=== PATIENT | female | born 1930 | race Caucasian/White ===

== ENCOUNTER 2017-12-28 13:46 | Inpatient (IN) | payer MEDICARE, BC, OTHER ==
[2017-12-28] VITALS (14 sets, daily range): BP systolic 166–205; BP diastolic 57–79; PULSE 58–73; RESP 16–38; TEMP 98.2–98.9; O2SAT 94–99
[~2017-12-28] VITALS: Ht 149.9 cm; Wt 50.3 kg
[~2017-12-28 13:46] MED LIST: AMLO2.5T PO; B-1210005 PO; CALC200S; CALC500T21 OR; CHEL50TA PO; CLOP75 PO; COQ1200C3 PO; CRANCAP PO; ESTR42.5V PV; EVIS60TA PO; FLUTPOW4; GING550C PO; GLUCCAP13 PO; ISOS10TA35 PO; LOSA25TA31 PO; LYRI150C PO; MAGN250T13 PO; METO25CR PO; MONT10 PO; NITR.4 SL; PRAV40TA2 PO; SALM1000 PO; SUPETAB30 PO; TEMA15CA PO; TRAM50TA PO; TYLE500T PO; WARF2.5T40 PO; WARF5TAB PO; [UNRECOGNIZED DRUG - CODE] TOP
--- NOTE | 2017-12-28 14:11 | PD ---
HPI Chief Complaint: Respiratory Symptoms Time Seen by Provider: 14:11 Travel History International Travel<30 days: No Contact w/Intl Traveler<30days: No Traveled to known affect area: No History of Present Illness HPI 87-year-old female came to the emergency room with history of running high blood pressure. Patient seems to be confused here which might be her baseline. Her son is giving the history and his main concern is that her blood pressure has been running between 180s to 200 systolic. He is concerned that she may have a stroke and hence he brought her to the emergency room. Patient has history of lung cancer and is on immunotherapy. For past 4-5 day she is having difficulty swallowing and has missed a few doses of her antihypertensives. When she arrived patient's blood pressure here was 185 systolic. Patient is not a good historian by any means and the son was in a mccray to leave because he had to pick his grandson up. PFSH Past Medical History Narrative Medical List of her past medical, surgical, social and family history is reviewed from the nursing note. 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) Menopausal: Yes Ovarian Cysts: Yes Past Surgical History Abdominal Surgery: Yes (HERNIA REPAIR X 4/ PLACEMENT OF STOMACH IN CHEST) Cardiac Surgery: Yes (OPEN HEART) Genitourinary Surgery: Yes (BLADDER X 3/BOWEL PROLAPSE INTO BLADDER) Hysterectomy: Yes (BILAT OVARIES) Tonsillectomy: Yes Other Surgery: Yes (NASAL PASSAGE OPENED) Social History Alcohol Use: Yes (1.5OZ SCOTCH NIGHTLY) Tobacco Use: No Substance Use: No Allergies-Medications (Allergen,Severity, Reaction): Coded Allergies: enalaprilat (Unverified Allergy, Severe, UNKNOWN, 12/28/17) hydromorphone (Unverified Allergy, Severe, SOB, 12/28/17) iodine (Unverified Allergy, Severe, SOB, 12/28/17) potassium iodide (Unverified Allergy, Severe, SOB, 12/28/17) povidone-iodine (Unverified Allergy, Severe, SOB, 12/28/17) sodium iodide (Unverified Allergy, Severe, SOB, 12/28/17) sodium iodide (Unverified Allergy, Severe, SOB, 12/28/17) codeine (Unverified Allergy, Intermediate, SOB, 12/28/17) nitrofurantoin (Verified Allergy, Intermediate, 12/28/17) GI UPSET Uncoded Allergies: STATINS (Allergy, Severe, SOB, 07/01/11) VINEGAR (Allergy, Unknown, 12/28/17) Comments List of allergies reviewed from the nursing note. Reported Meds & Prescriptions Reported Meds & Active Scripts Active Reported Keytruda Inj (Pembrolizumab) 100 Mg/4 Ml (25 Mg/Ml) Inj Claritin (Loratadine) 10 Mg Cap 10 Mg PO DAILY Ina Root 550 Mg Capsule Cranberry Urinary Comfort (Vitamins C & E) 1 Cap 1 Cap PO DAILY Coq-10 (Coenzyme Q10 (Ubidecarenone)) 400 Mg Cap Tom Natural Pain Relie 3-3 % (Menthol-Camphor (Liniments)) 3 %-3 % Gel [place] Oil (Nutritional Supplements) 1,000 Mg-200 Mg Cap Preservision Areds (Multiple Vitamins W/ Minerals) 1 Tab 1 Tab PO DAILY Glucosamine (Glucosamine Sulfate) 750 Mg Cap 750 Mg PO DAILY Fiber (Calcium Polycarbophil) 625 Mg Tab 1,250 Mg PO PRN Calcium 600 with Vitamin D (Calcium Carbonate-Cholecalciferol) 600-400 mg-Unit Tab 1 Tab PO DAILY B-12 (Cyanocobalamin) 1,000 Mcg Subl 1,000 Mcg SL DAILY Acidophilus/Bifidus (Probiotic Product) 1 Billion Cell Waf Tramadol (Tramadol HCl) 50 Mg Tab 50 Mg PO BID PRN Temazepam 15 Mg Cap 15 Mg PO HS PRN Proair Hfa 8.5 GM Inh (Albuterol Sulfate) 90 Mcg/Act Aer 2 Puff INH Q4-6H PRN 108 mcg/actuation Nitroglycerin SL (Nitroglycerin) 0.4 Mg Subl 0.4 Mg SL DIRECTED PRN ONE TABLET UNDER THE TONGUE NEEDED FOR CHEST PAIN, MAY REPEAT EVERY FIVE MINUTES FOR A TOTAL OF 3 DOSES OR CALL 911 IF NO RELIEF Fluticasone Nasal [place] 50 Mcg/Act Naspr 50 Mcg EACH NARE BID 50 mcg/spray Estrace Vaginal (Estradiol) 0.01% Cream 1 Appl VAGINAL HS Pravastatin 40 Mg Tab 40 Mg PO DAILY Lyrica (Pregabalin) 100 Mg Cap 100 Mg PO DAILY Breo Ellipta Inh (Fluticasone/Vilanterol) 100-25 Mcg/Act Inh 1 Puff INH DAILY Use daily at the same time. Pantoprazole (Pantoprazole Sodium) 40 Mg Tab 40 Mg PO BID Metoprolol Tartrate 25 Mg Tab 0.5 Tab PO BID Lyrica (Pregabalin) 75 Mg Cap 75 Mg PO DAILY Isosorbide Mononitrate ER (Isosorbide Mononitrate) 30 Mg [place] 30 Mg PO BID Plavix (Clopidogrel Bisulfate) 75 Mg Tab 75 Mg PO DAILY Narrative Medication List of her home medications reviewed from the nursing note. Review of Systems Except as stated in HPI: all other systems reviewed are Neg Gastrointestinal: Positive: Loss of Appetite Physical Exam Narrative GENERAL: Awake but confused, elderly, moderate distress, frail SKIN: Focused skin assessment warm/dry. HEAD: Atraumatic. Normocephalic. EYES: Pupils equal and round. No scleral icterus. No injection or drainage. ENT: No nasal bleeding or discharge. Mucous membranes pink and moist. NECK: Trachea midline. No JVD. CARDIOVASCULAR: Regular rate and rhythm. No murmur appreciated. RESPIRATORY: No accessory muscle use. Clear to auscultation. Breath sounds equal bilaterally. GASTROINTESTINAL: Abdomen soft, non-tender, nondistended. Hepatic and splenic margins not palpable. MUSCULOSKELETAL: No obvious deformities. No clubbing. No cyanosis. No edema. NEUROLOGICAL: Confused. No obvious cranial nerve deficits. Motor grossly within normal limits. Normal speech. PSYCHIATRIC: Appropriate mood and affect; insight and judgment normal. Data Data Last Documented VS Vital Signs Date Time Temp Pulse Resp B/P (MAP) Pulse Ox O2 Delivery O2 Flow Rate FiO2 12/28/17 14:57 63 16 180/75 (110) 99 Nasal Cannula 2.00 12/28/17 13:55 98.2 Orders Orders Electrocardiogram (12/28/17 14:26) Basic Metabolic Panel (Bmp) (12/28/17 14:26) Complete Blood Count With Diff (12/28/17 14:26) Prothrombin Time / Inr (Pt) (12/28/17 14:26) Troponin I (12/28/17 14:26) Urinalysis - C+S If Indicated (12/28/17 14:26) Blood Glucose (12/28/17 14:26) Ecg Monitoring (12/28/17 14:26) Iv Access Insert/Monitor (12/28/17 14:26) Oximetry (12/28/17 14:26) Sodium Chloride 0.9% Flush (Ns Flush) (12/28/17 14:30) Sodium Chlor 0.9% 250 Ml Inj (Ns 250 Ml (12/28/17 14:30) Ct Thorax/ Chest Wo Iv Contras (12/28/17 ) Potassium Chloride (Kcl) (12/28/17 15:15) Sodium Chlor 0.9% 250 Ml Inj (Ns 250 Ml (12/28/17 15:15) Vital Signs (Adult) HORACIO.Q4H (12/28/17 15:27) Sodium Chloride 0.9% Flush (Ns Flush) (12/28/17 15:30) Sodium Chloride 0.9% Flush (Ns Flush) (12/28/17 21:00) Potassium Chloride Eff (K-Lyte Cl Eff) (12/28/17 15:30) Potassium Chlor 20 Meq Premix (Kcl 20 Me (12/28/17 15:30) Admit Order (Ed Use Only) (12/28/17 15:30) Hepatic Functional Panel (12/28/17 14:45) Magnesium (Mg) (12/28/17 14:45) Labs Laboratory Tests Test 12/28/17 14:45 White Blood Count 6.9 TH/MM3 Red Blood Count 4.08 MIL/MM3 Hemoglobin 11.0 GM/DL Hematocrit 34.0 % Mean Corpuscular Volume 83.4 FL Mean Corpuscular Hemoglobin 26.9 PG Mean Corpuscular Hemoglobin Concent 32.3 % Red Cell Distribution Width 14.5 % Platelet Count 238 TH/MM3 Mean Platelet Volume 7.2 FL Neutrophils (%) (Auto) 85.1 % Lymphocytes (%) (Auto) 6.5 % Monocytes (%) (Auto) 8.1 % Eosinophils (%) (Auto) 0.1 % Basophils (%) (Auto) 0.2 % Neutrophils # (Auto) 5.8 TH/MM3 Lymphocytes # (Auto) 0.5 TH/MM3 Monocytes # (Auto) 0.6 TH/MM3 Eosinophils # (Auto) 0.0 TH/MM3 Basophils # (Auto) 0.0 TH/MM3 CBC Comment DIFF FINAL Differential Comment Prothrombin Time 11.4 SEC Prothromb Time International Ratio 1.1 RATIO Blood Urea Nitrogen 12 MG/DL Creatinine 0.54 MG/DL Random Glucose 115 MG/DL Total Protein 6.9 GM/DL Albumin 3.5 GM/DL Calcium Level 8.3 MG/DL Magnesium Level 1.9 MG/DL Alkaline Phosphatase 71 U/L Aspartate Amino Transf (AST/SGOT) 31 U/L Alanine Aminotransferase (ALT/SGPT) 24 U/L Total Bilirubin 1.4 MG/DL Direct Bilirubin 0.4 MG/DL Sodium Level 115 MEQ/L Potassium Level 2.7 MEQ/L Chloride Level 78 MEQ/L Carbon Dioxide Level 29.0 MEQ/L Anion Gap 8 MEQ/L Estimat Glomerular Filtration Rate 106 ML/MIN Indirect Bilirubin 1.0 MG/DL Troponin I 0.03 NG/ML Thyroid Stimulating Hormone 3rd Gen 1.790 uIU/ML MDM Medical Decision Making Medical Screen Exam Complete: Yes Emergency Medical Condition: Yes Medical Record Reviewed: Yes Interpretation(s) EKG was reviewed by me. Normal sinus rhythm, left axis deviation, motion artifacts, U waves. Heart rate of 61 bpm. Differential Diagnosis Electrolyte abnormality, tumor compressing the esophagus, UTI Narrative Course 3:24 PM blood test results are back. Her potassium is significantly decreased and so is her sodium. I've given her total of 500 cc of IV fluid bolus. Patient is getting by mouth potassium replacement. If the creatinine is within normal limits she'll get IV potassium replacement as well. Patient will need to be admitted. Awaiting for the CT scan of her chest to be read by the radiologist. 3:31 PM I discussed the case with the hospitalist and he wants the patient to be admitted to the unit because of the hyponatremia. Critical Care Narrative Aggregate critical care time was 45 minutes. Time to perform other separately billable procedures was not included in the critical care time. My time did not include minutes spent treating any other patients simultaneously or on activities that did not directly contribute to the patient's treatment. The services I provided to this patient were to treat and/or prevent clinically significant deterioration that could result in: Severe hyponatremia and hypokalemia with replacement. I provided critical care services requiring my management, as noted below: Chart data review, documentation time, medication orders and management, vital sign assessments/reviewing monitor data, ordering and reviewing lab tests, ordering and interpreting/reviewing x-rays and diagnostic studies, care of the patient and discussion of the patient with the admitting physicians. Procedures EKG Prior to Arrival: No Diagnosis Primary Impression: Hyponatremia Additional Impressions: Hypokalemia Altered mental status Qualified Codes: R41.0 - Disorientation, unspecified Admitting Information Admitting Physician Requests: Admit Scripts Amlodipine (Norvasc) 10 Mg Tab 10 MG PO DAILY for Blood Pressure Management for 30 Days, #30 TAB Prov: Yohan Ruff 12/31/17 Hydralazine HCl (Hydralazine HCl) 10 Mg Tablet 10 MG PO Q8HR for Blood Pressure Management for 30 Days, TAB Prov: Yohan Ruff 12/31/17 Lori Smith MD Dec 28, 2017 14:11
[2017-12-28] MEDS ORDERED: SODIUM CHLOR 0.9% 250 ML INJ 250 ML IV ONE ×2 (14:30→15:15)
[2017-12-28] MEDS ORDERED: SODIUM CHLORIDE 0.9% FLUSH 10 ML FLUSH IV FLUSH PRN ×2 (14:30→15:30)
[2017-12-28] MEDS ORDERED: LYRI75CA PO (14:31)
[2017-12-28] MEDS ORDERED: LYRI100C PO (14:31)
[2017-12-28] MEDS ORDERED: FLUT50SP EACH NARE (14:31)
[2017-12-28] MEDS ORDERED: TRAM50TA PO (14:31)
[2017-12-28] MEDS ORDERED: NITR1SUB3 SL (14:31)
[2017-12-28] MEDS ORDERED: PLAV75TA29 PO (14:31)
[2017-12-28] MEDS ORDERED: HYDR25TA5 PO (14:31)
[2017-12-28] MEDS ORDERED: FLUT1INH INH (14:31)
[2017-12-28] MEDS ORDERED: PRAV40TA2 PO (14:31)
[2017-12-28] MEDS ORDERED: TEMA15CA PO (14:31)
[2017-12-28] MEDS ORDERED: METO25TA3 PO (14:31)
[2017-12-28] MEDS ORDERED: ESTR42.5V VAGINAL (14:31)
[2017-12-28] MEDS ORDERED: ISOS30TA3 PO (14:31)
[2017-12-28] MEDS ORDERED: PANT40TA3 PO (14:31)
[2017-12-28] MEDS ORDERED: ALBUAER3 INH (14:31)
[2017-12-28 14:50] LABS: AUTOMATED NEUTROPHIL # 5.8 TH/MM3 (1.8-7.7); BASOPHIL % 0.2 % (0.0-2.0); EOSINOPHIL % 0.1 % (0.0-4.0); LYMPH % 6.5 % (9.0-44.0); LYMPHOCYTE # 0.5 TH/MM3 (1.0-4.8); MEAN CELL VOLUME 83.4 FL (80.0-100.0); MEAN CORPUSCULAR HEMOGLOBIN 26.9 PG (27.0-34.0); MEAN CORPUSCULAR HGB CONC 32.3 % (32.0-36.0); MEAN PLATELET VOLUME 7.2 FL (7.0-11.0); MONO % 8.1 % (0.0-8.0); MONOCYTE # 0.6 TH/MM3 (0-0.9); NEUT % 85.1 % (16.0-70.0); PLATELET COUNT 238 TH/MM3 (150-450); RED BLOOD COUNT 4.08 MIL/MM3 (4.00-5.30); RED CELL DISTRIBUTION WIDTH 14.5 % (11.6-17.2); WHITE BLOOD COUNT 6.9 TH/MM3 (4.0-11.0)
[2017-12-28 15:02] LABS: INTERNATIONAL NORMALIZED RATIO 1.1 RATIO; PROTHROMBIN TIME - PATIENT 11.4 SEC (9.8-11.6)
[2017-12-28 15:03] LABS: CALCIUM 8.3 MG/DL (8.5-10.1)
[2017-12-28] MEDS ORDERED: POTASSIUM CHLORIDE 20 MEQ CONTROLLED RELEASE TAB PO ONE (15:15)
[2017-12-28 15:16] LABS: CREATININE 0.54 MG/DL (0.50-1.00); TROPONIN I 0.03 NG/ML (0.02-0.05)
--- NOTE | 2017-12-28 15:26 | RADRPT ---
EXAM DATE/TIME: 12/28/2017 14:59 [facility] COMPARISON: No previous studies available for comparison. INDICATIONS : Short of breath. Mass. RADIATION DOSE: 10.08 CTDIvol (mGy) MEDICAL HISTORY : Cerebrovascular disease. Cardiovascular disease Carcinoma, lung. Hypertension. SURGICAL HISTORY : None. ENCOUNTER: Initial ACUITY: 4 - 6 days PAIN SCALE: 4/10 LOCATION: chest TECHNIQUE: Volumetric scanning of the chest was performed. Using automated exposure control and adjustment of t he mA and/or kV according to patient size, radiation dose was kept as low as reasonably achievable to obtain optimal diagnostic quality images. DICOM format image data is available electronically for r eview and comparison. Follow-up recommendations for detected pulmonary nodules are based at a minimum on nodule size and pa tient risk factors according to Fleischner Society Guidelines. FINDINGS: LUNGS: There is a 3 cm roughly rounded focus of consolidative change in the superior segment of the right lo wer lobe which looks like a small focus of infiltrate. Patchy minimal infiltrate present elsewhere. PLEURAE: There is no pleural thickening or pleural effusion. MEDIASTINUM: Cardiomegaly. Mildly prominent central mediastinal lymph nodes with precarinal nodes slightly exceedi ng 1.5 cm. These may be reactive. Atherosclerotic vascular calcifications including coronary calcific ations. Evidence of previous CABG AXILLAE: Within normal limits. No lymphadenopathy. MUSCULOSKELETAL: Within normal limits for patient age. MISCELLANEOUS: The visualized upper abdominal organs demonstrate no acute abnormality. CONCLUSION: 3 cm rounded area of consolidative density in the superior segment of the right lower lobe looks most like an infiltrate. Appropriate management and followup imaging to document clearance would be sugge sted with repeat CT in 4-6 weeks Kam Rivas MD on December 28, 2017 at 15:13 Board Certified Radiologist. This report was verified electronically.
[2017-12-28] MEDS ORDERED: POTASSIUM CHLOR 20 MEQ PREMIX 100 ML IV ONE (15:30)
[2017-12-28] MEDS ORDERED: POTASSIUM CHLORIDE 25 MEQ EFFERVESCENT TAB PO ONE (15:30)
[2017-12-28] MEDS ORDERED: GING1CAP (15:37)
[2017-12-28] MEDS ORDERED: [UNRECOGNIZED DRUG - OTHER] (15:37)
[2017-12-28] MEDS ORDERED: SALM10002 (15:37)
[2017-12-28] MEDS ORDERED: COEN400C (15:37)
[2017-12-28] MEDS ORDERED: CYAN100025 SL (15:37)
[2017-12-28] MEDS ORDERED: CALC1TAB87 PO (15:37)
[2017-12-28] MEDS ORDERED: GLUC750C PO (15:37)
[2017-12-28] MEDS ORDERED: CLAR10CA3 PO (15:37)
[2017-12-28] MEDS ORDERED: OCUVTAB4 PO (15:37)
[2017-12-28] MEDS ORDERED: [UNRECOGNIZED DRUG - CODE] (15:37)
[2017-12-28] MEDS ORDERED: CRANCAP2 PO (15:37)
[2017-12-28] MEDS ORDERED: PEMB1INJ (15:37)
[2017-12-28] MEDS ORDERED: FIBE625T10 PO (15:37)
[2017-12-28] MEDS ORDERED: 3% SALINE INJ 250 ML IV ONE (15:45)
--- NOTE | 2017-12-28 16:17 | HHI.HP ---
HPI [facility] Primary [facility] Physician Nan Milligan, DO Admission Diagnosis hyponatremia, hypokalemia, altered mental status Diagnoses: Chief Complaint: High blood pressure, not eating Travel History International Travel<30 Days: No Contact w/Intl Traveler <30 Da: No Traveled to Known Affected Are: No History of Present Illness 87-year-old white female being admitted for symptomatic severe hyponatremia. Patient is a limited historian at this time due to medical condition, son provides supplemental history. Patient was in her usual state of health until about a week ago when she began developing hiccups that would not stop. This progressed on for days. Her son frequently started checking her blood pressure at home with an automatic cuff and started noting systolic blood pressures that would climb to the 200s. He increased her dose of hydrochlorothiazide from 1 pill to 1-1/2 pill each day and so mild improvement down to the 180s with systolic. He noted that she had significantly decreased p.o. intake, so is on normal days she is eats a lot but now she is barely eating. The patient's son denies the patient complaining of any worsening or new pain anywhere. He denies noticing any labored breathing. He initially had taken her to [facility] 4 days ago this was informed that her sodium level was fine at that time as well as a neg head CT. She was discharged home. Due to the persistence and the patient's symptoms, the patient 's son contacted her nurses' registry director's office which recommended that she go to the emergency department. In the emergency room, the patient's blood pressure was noted to be in the 180 systolic. Workup showed a low sodium level at 115 and hypokalemia at 2.7. She was given oral and IV potassium as well as a small normal saline bolus of 250 cc. Review of Systems Except as stated in HPI: all other systems reviewed are Neg Past Family Social History Past Medical History Lung cancer. COPD Hypertension Coronary artery disease Allergies: Coded Allergies: enalaprilat (Unverified Allergy, Severe, UNKNOWN, 12/28/17) hydromorphone (Unverified Allergy, Severe, SOB, 12/28/17) iodine (Unverified Allergy, Severe, SOB, 12/28/17) potassium iodide (Unverified Allergy, Severe, SOB, 12/28/17) povidone-iodine (Unverified Allergy, Severe, SOB, 12/28/17) sodium iodide (Unverified Allergy, Severe, SOB, 12/28/17) sodium iodide (Unverified Allergy, Severe, SOB, 12/28/17) codeine (Unverified Allergy, Intermediate, SOB, 12/28/17) nitrofurantoin (Verified Allergy, Intermediate, 12/28/17) GI UPSET Uncoded Allergies: STATINS (Allergy, Severe, SOB, 07/01/11) VINEGAR (Allergy, Unknown, 12/28/17) Family History Aortic aneurysm and father Social History Lifelong history of smoking Physical Exam Vital Signs Vital Signs Date Time Temp Pulse Resp B/P (MAP) Pulse Ox O2 Delivery O2 Flow Rate FiO2 12/28/17 14:57 63 16 180/75 (110) 99 Nasal Cannula 2.00 12/28/17 14:32 98 Nasal Cannula 2.00 12/28/17 14:18 63 98 Nasal Cannula 2.00 12/28/17 13:55 98.2 61 16 172/73 (106) 94 Physical Exam VS: afebrile GENERAL: Lying in bed, awake, appears a little anxious otherwise, makes good eye contact SKIN: Warm and dry. EYES: Pupils equal and round. No scleral icterus. No injection or drainage. ENT: No nasal bleeding or discharge. Mucous membranes pink and moist. CARDIOVASCULAR: Regular rate and rhythm. 5/6 ejection murmur. No hepatojugular reflex RESPIRATORY: No accessory muscle use. Clear to auscultation. Breath sounds equal bilaterally. GASTROINTESTINAL: Abdomen soft, non-tender, nondistended. Extremities: No clubbing, cyanosis, or edema. No obvious deformities. MUSCULOSKELETAL: grossly intact ROM with 5/5 strength in upper and lower extremities proximally; adequate muscle bulk and tone for age and habitus NEUROLOGICAL: He is oriented to self, has trouble finding place and time, no facial droop nor slurred speech noted. PSYCHIATRIC: Appropriate mood and affect; insight and judgment normal. Laboratory Laboratory Tests Test 12/28/17 14:45 White Blood Count 6.9 Red Blood Count 4.08 Hemoglobin 11.0 Hematocrit 34.0 Mean Corpuscular Volume 83.4 Mean Corpuscular Hemoglobin 26.9 Mean Corpuscular Hemoglobin Concent 32.3 Red Cell Distribution Width 14.5 Platelet Count 238 Mean Platelet Volume 7.2 Neutrophils (%) (Auto) 85.1 Lymphocytes (%) (Auto) 6.5 Monocytes (%) (Auto) 8.1 Eosinophils (%) (Auto) 0.1 Basophils (%) (Auto) 0.2 Neutrophils # (Auto) 5.8 Lymphocytes # (Auto) 0.5 Monocytes # (Auto) 0.6 Eosinophils # (Auto) 0.0 Basophils # (Auto) 0.0 CBC Comment DIFF FINAL Differential Comment Prothrombin Time 11.4 Prothromb Time International Ratio 1.1 Blood Urea Nitrogen 12 Creatinine 0.54 Random Glucose 115 Calcium Level 8.3 Sodium Level 115 Potassium Level 2.7 Chloride Level 78 Carbon Dioxide Level 29.0 Anion Gap 8 Estimat Glomerular Filtration Rate 106 Troponin I 0.03 Result Diagram: 12/28/17 1445 12/28/17 1445 Imaging Last Impressions Chest CT 12/28/17 0000 Signed Impressions: Service Date/Time: December 14:59 - CONCLUSION: 3 cm rounded area of consolidative density in the superior segment of the right lower lobe looks most like an infiltrate. Appropriate management and followup imaging to document clearance would be suggested with repeat CT in 4-6 weeks MD Mikel Romero VTE Risk Assessment Caprini VTE Risk Assessment: Mod/High Risk (score >= 2) Caprini Risk Assessment Model Point Value = 1 Point Value = 2 Point Value = 3 Point Value = 5 Age 41-60 Minor surgery BMI > 25 kg/m2 Swollen legs Varicose veins or History of unexplained or recurrent spontaneous Oral contraceptives or hormone replacement Sepsis (< 1 month) Serious lung disease, including pneumonia (< 1 month) Abnormal pulmonary function Acute myocardial infarction Congestive heart failure (< 1 month) History of inflammatory bowel disease Medical patient at bed rest Age 61-74 Arthroscopic surgery Major open surgery (> 45 min) Laparoscopic surgery (> 45 min) Malignancy Confined to bed (> 72 hours) Immobilizing plaster cast Central venous access Age >= 75 History of VTE Family history of VTE Factor V Leiden Prothrombin [id number] Lupus anticoagulant Anticardiolipin antibodies Elevated serum homocysteine Heparin-induced thrombocytopenia Other congenital or acquired thrombophilia Stroke (< 1 month) Elective arthroplasty Hip, pelvis, or leg fracture Acute spinal cord injury (< 1 month) Prophylaxis Regimen Total Risk Factor Score Risk Level Prophylaxis Regimen 0-1 Low Early ambulation 2 Moderate Order ONE of the following: *Sequential Compression Device (SCD) *Heparin 5000 units SQ BID 3-4 Higher Order ONE of the following medications: *Heparin 5000 units SQ TID *Enoxaparin/Lovenox 40 mg SQ daily (WT < 150 kg, CrCl > 30 mL/min) *Enoxaparin/Lovenox 30 mg SQ daily (WT < 150 kg, CrCl > 10-29 mL/min) *Enoxaparin/Lovenox 30 mg SQ BID (WT < 150 kg, CrCl > 30 mL/min) AND/OR *Sequential Compression Device (SCD) 5 or more Highest Order ONE of the following medications: *Heparin 5000 units SQ TID (Preferred with Epidurals) *Enoxaparin/Lovenox 40 mg SQ daily (WT < 150 kg, CrCl > 30 mL/min) *Enoxaparin/Lovenox 30 mg SQ daily (WT < 150 kg, CrCl > 10-29 mL/min) *Enoxaparin/Lovenox 30 mg SQ BID (WT < 150 kg, CrCl > 30 mL/min) AND *Sequential Compression Device (SCD) Assessment and Plan Assessment and Plan 87-year-old white female being admitted for severe symptomatic hyponatremia Encephalopathy - Likely secondary to metabolic disturbance of severe hyponatremia and possible pneumonia - Treat underlying causes as below - Bedside swallow assessment from nursing - fall precautions - adding on LFTs - b12, mg and phos Severe hyposmolar hyponatremia - possibly 2/2 PNA vs cancer; CT independently reviewed more suggestive of PNA infiltrate in RLL - s/p small bolus in ER, will trend sodium tomorrow in AM - obtaining urine sodium, urine osmolality, TSH, AM cortisol, and ADH level ( given hx of lung CA - will be send-out); ordering outside records including echo done at [facility] done earlier this week - telemetry - f/u LFTs Lung cancer hypokalemia - likely 2/2 decreased PO intake, ordering mg, trend in AM, replace as warranted HTN - vasotec prn - continue home meds Coronary artery disease - Continue home Plavix and pravastatin Fibromyalgia and chronic pain - Continue Lyrica and tramadol COPD - continue home albuterol Lovenox Physician Certification 2 Midnight Certification Type: Admission for Inpatient Services Order for Inpatient Services The services are ordered in accordance with Medicare regulations or non- Medicare payer requirements, as applicable. In the case of services not specified as inpatient-only, they are appropriately provided as inpatient services in accordance with the 2-midnight benchmark. Estimated LOS (days): 3 3 days is the estimated time the patient will need to remain in the hospital, assuming treatment plan goals are met and no additional complications. Post-Hospital Plan: Not yet determined Bhargav Hanks MD Dec 28, 2017 16:17
[2017-12-28] MEDS ORDERED: RESP: ALBUTEROL 1.25 MG/3 ML NEB (PRN) NEB (17:00)
[2017-12-28 17:01] LABS: ALBUMIN 3.5 GM/DL (3.4-5.0); DIRECT BILIRUBIN ADULT 0.4 MG/DL (0.0-0.2); MAGNESIUM 1.9 MG/DL (1.5-2.5); TOTAL BILIRUBIN ADULT 1.4 MG/DL (0.2-1.0); TOTAL PROTEIN 6.9 GM/DL (6.4-8.2)
[2017-12-28] MEDS: LABETALOL HCL 100 MG/20 ML VIAL IV PUSH PRN ×2 (18:35→23:11)
[2017-12-28] MEDS: ENOXAPARIN SODIUM 30 MG/0.3 ML SYRINGE SQ SCH (20:50)
[2017-12-28] MEDS: ISOSORBIDE MONONITRATE 30 MG CR TAB (IMDUR) PO SCH (20:50)
[2017-12-28] MEDS: PANTOPRAZOLE SOD 40 MG DELAYED RELEASE TAB PO SCH (20:51)
[2017-12-28] MEDS: METOPROLOL TARTRATE 25 MG TAB PO SCH (20:51)
[2017-12-28] MEDS: SODIUM CHLORIDE 0.9% FLUSH 10 ML FLUSH IV FLUSH SCH (23:12)
[2017-12-29] VITALS (27 sets, daily range): BP systolic 13–185; BP diastolic 49–90; PULSE 48–66; RESP 19–39; TEMP 97.3–98.8; O2SAT 93–100
[2017-12-29] MEDS: traMADol HCL 50 MG TAB PO PRN (01:04)
[2017-12-29 05:32] LABS: BICARBONATE 25.9 MEQ/L (21.0-32.0); CALCIUM 8.1 MG/DL (8.5-10.1); CREATININE 0.43 MG/DL (0.50-1.00)
[2017-12-29] MEDS: LABETALOL HCL 100 MG/20 ML VIAL IV PUSH PRN (05:40)
[2017-12-29] MEDS ORDERED: cloNIDine HCL 0.1 MG TAB PO ONE (06:00)
[2017-12-29] MEDS ORDERED: POTASSIUM CHLORIDE 10 MEQ CONTROLLED RELEASE TAB PO ONE (06:00)
[2017-12-29] MEDS ORDERED: PREGABALIN 75 MG CAP PO SCH (09:00)
[2017-12-29] MEDS: SODIUM CHLORIDE 0.9% FLUSH 10 ML FLUSH IV FLUSH SCH ×2 (09:00→19:58)
[2017-12-29] MEDS: PANTOPRAZOLE SOD 40 MG DELAYED RELEASE TAB PO SCH ×2 (10:05→19:58)
[2017-12-29] MEDS: FLUTICASONE 100 MCG/VILANTEROL 25 MCG INHALER INH SCH (10:05)
[2017-12-29] MEDS: LORATADINE 10 MG TAB PO SCH (10:05)
[2017-12-29] MEDS: METOPROLOL TARTRATE 25 MG TAB PO SCH ×3 (10:06→22:25)
[2017-12-29] MEDS: ISOSORBIDE MONONITRATE 30 MG CR TAB (IMDUR) PO SCH ×2 (10:06→19:58)
[2017-12-29] MEDS: CLOPIDOGREL 75 MG TAB PO SCH (10:06)
[2017-12-29] MEDS: PRAVASTATIN SOD 40 MG TAB PO SCH (10:06)
[2017-12-29] MEDS: PREGABALIN 100 MG CAP PO SCH (10:06)
[2017-12-29 12:48] LABS: CREATININE 0.48 MG/DL (0.50-1.00)
[2017-12-29] MEDS ORDERED: POTASSIUM CHLORIDE 20 MEQ CONTROLLED RELEASE TAB PO ONE (13:45)
--- NOTE | 2017-12-29 13:45 | HHI.PR ---
Subjective Remarks Patient seen and examined today for follow-up on hyponatremia. Patient lying in bed. States that she would like to get out of bed to use the toilet to go to the bathroom. Patient denies any pain. Patient is afebrile. Discussed with son at bedside who indicates that her mentation is significantly better. He also indicates that over the last 3 weeks he has tripled her fluid intake Objective Vitals Vital Signs Date Time Temp Pulse Resp B/P (MAP) Pulse Ox O2 Delivery O2 Flow Rate FiO2 12/29/17 12:00 64 12/29/17 10:07 58 26 168/61 (96) 12/29/17 10:00 65 12/29/17 09:00 98.8 56 28 158/78 (104) 95 12/29/17 08:00 55 12/29/17 08:00 62 30 160/75 (103) 94 12/29/17 08:00 94 21 12/29/17 07:00 54 38 162/74 (103) 94 12/29/17 06:00 55 12/29/17 06:00 54 30 168/63 (98) 93 12/29/17 05:39 56 20 175/71 (105) 94 12/29/17 05:00 60 23 185/70 (108) 94 12/29/17 04:00 60 12/29/17 04:00 98.2 60 19 160/65 (96) 95 12/29/17 02:00 62 32 160/65 (96) 94 12/29/17 02:00 62 12/29/17 01:00 60 28 170/90 (116) 94 12/29/17 00:00 98.5 62 28 179/66 (103) 94 12/29/17 00:00 60 12/28/17 22:44 60 24 177/73 (107) 95 12/28/17 22:00 62 12/28/17 21:52 58 23 169/71 (103) 95 12/28/17 21:08 62 25 187/57 (100) 95 12/28/17 20:47 95 21 12/28/17 20:43 98.6 60 38 194/72 (112) 95 12/28/17 20:00 60 28 96 12/28/17 20:00 60 12/28/17 19:00 62 32 166/65 (98) 94 12/28/17 18:00 60 12/28/17 17:12 98.9 68 24 187/72 (110) 95 12/28/17 16:55 12/28/17 16:55 73 16 205/79 (121) 98 Nasal Cannula 2.00 12/28/17 14:57 63 16 180/75 (110) 99 Nasal Cannula 2.00 12/28/17 14:32 98 Nasal Cannula 2.00 12/28/17 14:18 63 98 Nasal Cannula 2.00 12/28/17 13:55 98.2 61 16 172/73 (106) 94 I/O 12/28/17 12/28/17 12/28/17 12/29/17 12/29/17 12/29/17 07:00 15:00 23:00 07:00 15:00 23:00 Intake Total 550 ml 242 ml Output Total 1 ml Balance 550 ml 241 ml Intake Oral 120 ml IV Total 550 ml 122 ml Output Urine Total 1 ml Stool Total 0 ml Result Diagram: 12/28/17 1445 12/29/17 1124 Objective Remarks GENERAL: Well-developed, well-nourished, in no acute distress. alert HEENT: Head is normocephalic without any lesions or masses noted. Facial features are symmetric. Eyes: Extraocular muscles are intact. Conjunctivae were clear. NECK: Supple without any masses. Trachea midline no deviation. No JVD CARDIAC: Regular rhythm, regular rate. S1/S2 are heard. No murmurs gallops or rubs. LUNGS: Clear to auscultation bilaterally. No wheeze, rhonchi or rales. No use of accessory muscles on inspiration or expiration. ABDOMEN: Soft, nontender. Nondistended. Bowel sounds heard in all 4 quadrants. No organomegaly or masses. Negative rebound, negative guarding EXTREMITIES: No edema, pulses are equal bilaterally. No cyanosis or clubbing NEUROLOGY: Mood and affect appear appropriate. Cranial nerves II through XII grossly intact. Moving all extremities, speech is clear Urinary Catheter: No Vascular Central Line Catheter: No A/P Assessment and Plan Hyponatremia Unknown etiology at this time, awaiting laboratory studies, Renal functions show signs of overhydration, patient is on HCTZ which will be held at this time, Son indicates that he has tripled her fluid intake in the last few weeks, because he thought she was dehydrated CT scan does indicate a 3 cm rounded area of consolidative density. This radiologist indicates most likely an infiltrate. Recommend close follow-up TSH was normal, cortisol level was normal Monitor sodium closely for slow improvement at 0.5 mEq per hour patient is on hypertonic saline 3% at 10 mL per hour Hypokalemia Replace and continue monitor Encephalopathy, altered mental status, improved Likely secondary to metabolic disturbance from hyponatremia Monitor neurological function Bedside swallow evaluation has been performed Physical therapy evaluation If no significant improvement may need further workup performed Hypertension, coronary artery disease Resume home medication Fibromyalgia Continue home medications Chronic obstructive pulmonary disease Continue O2 supplementation maintain O2 sats greater 92% Duo nebs as needed Breo inhaler continued DVT prevention Sub-cutaneous Lovenox Yohan Ruff Dec 29, 2017 13:45
[2017-12-29 16:55] LABS: FOLATE GREATER THAN 20.0 NG/ML (3.1-17.5)
[2017-12-29 18:23] LABS: BICARBONATE 27.5 MEQ/L (21.0-32.0); CALCIUM 8.1 MG/DL (8.5-10.1); CREATININE 0.59 MG/DL (0.50-1.00)
[2017-12-29] MEDS ORDERED: 3% SALINE INJ 250 ML IV ONE (18:45)
[2017-12-29] MEDS: ENOXAPARIN SODIUM 30 MG/0.3 ML SYRINGE SQ SCH (19:58)
[2017-12-29 23:05] LABS: BILIRUBIN, URINE NEG (NEG); BLOOD, URINE NEG (NEG); GLUCOSE,URINE NEG (NEG); KETONE, URINE NEG (NEG); NITRITE,URINE NEG (NEG); PH, URINE 6.5 (5.0-8.5); URINE LEUKOCYTE ESTERASE SMALL (NEG)
[2017-12-29 23:13] LABS: URINE COLOR YELLOW (YELLW/STRAW)
[2017-12-29 23:14] LABS: RBC, URINE 0-2 /hpf (0-3); SQUAMOUS EPITHELIAL CELL URINE 0-5 /hpf (0-5); WBC, URINE 15-19 /hpf (0-5)
[2017-12-30] VITALS (15 sets, daily range): BP systolic 115–195; BP diastolic 48–121; PULSE 52–68; RESP 17–33; TEMP 97.4–98.6; O2SAT 93–98
--- NOTE | 2017-12-30 01:01 | EKG ---
Date Performed: 12/28/2017 Time Performed: 14:40:51 PTAGE: 87 years EKG: ATRIAL FIBRILLATION BORDERLINE LEFT AXIS DEVIATION MODERATE INTRAVENTRICULAR CONDUCTION DEL AY NONSPECIFIC ST & T-WAVE ABNORMALITY ABNORMAL ECG PREVIOUS TRACING : 03/09/2005 11.18 Compared to prior tracing, SR no longer present DOCTOR: Apolonia Agudelo Interpretating Date/Time 12/30/2017 01:00:47
[2017-12-30] MEDS ORDERED: hydrALAZINE HCL 20 MG/ML VIAL IV PUSH ONE (01:15)
[2017-12-30 01:52] LABS: CALCIUM 7.7 MG/DL (8.5-10.1)
[2017-12-30 01:53] LABS: BICARBONATE 25.2 MEQ/L (21.0-32.0)
[2017-12-30 01:56] LABS: CREATININE 0.53 MG/DL (0.50-1.00)
[2017-12-30 02:47] LABS: SODIUM,RANDOM URINE 24 MEQ/L
[2017-12-30 02:49] LABS: OSMOLALITY,URINE 439 MOSM/KG (300-1300)
[2017-12-30 06:21] LABS: AUTOMATED NEUTROPHIL # 3.7 TH/MM3 (1.8-7.7); BASOPHIL % 0.4 % (0.0-2.0); HEMATOCRIT 31.2 % (35.0-46.0); HEMOGLOBIN 10.1 GM/DL (11.6-15.3); LYMPH % 11.1 % (9.0-44.0); LYMPHOCYTE # 0.5 TH/MM3 (1.0-4.8); MEAN CELL VOLUME 84.9 FL (80.0-100.0); MEAN CORPUSCULAR HEMOGLOBIN 27.5 PG (27.0-34.0); MEAN CORPUSCULAR HGB CONC 32.4 % (32.0-36.0); MEAN PLATELET VOLUME 7.9 FL (7.0-11.0); MONO % 11.8 % (0.0-8.0); MONOCYTE # 0.6 TH/MM3 (0-0.9); NEUT % 75.7 % (16.0-70.0); PLATELET COUNT 204 TH/MM3 (150-450); RED BLOOD COUNT 3.68 MIL/MM3 (4.00-5.30); RED CELL DISTRIBUTION WIDTH 14.7 % (11.6-17.2); WHITE BLOOD COUNT 4.8 TH/MM3 (4.0-11.0)
[2017-12-30] MEDS: PILL SPLITTER OTHER PRN (09:30)
[2017-12-30] MEDS: PANTOPRAZOLE SOD 40 MG DELAYED RELEASE TAB PO SCH ×2 (09:30→20:37)
[2017-12-30] MEDS: PRAVASTATIN SOD 40 MG TAB PO SCH (09:30)
[2017-12-30] MEDS: LORATADINE 10 MG TAB PO SCH (09:30)
[2017-12-30] MEDS: PREGABALIN 100 MG CAP PO SCH (09:30)
[2017-12-30] MEDS: SODIUM CHLORIDE 0.9% FLUSH 10 ML FLUSH IV FLUSH SCH ×2 (09:30→20:37)
[2017-12-30] MEDS: METOPROLOL TARTRATE 25 MG TAB PO SCH ×2 (09:30→20:37)
[2017-12-30] MEDS: FLUTICASONE 100 MCG/VILANTEROL 25 MCG INHALER INH SCH (09:30)
[2017-12-30] MEDS: CLOPIDOGREL 75 MG TAB PO SCH (09:30)
[2017-12-30] MEDS: ISOSORBIDE MONONITRATE 30 MG CR TAB (IMDUR) PO SCH ×2 (09:31→20:37)
--- NOTE | 2017-12-30 09:40 | HHI.PR ---
Subjective Remarks Patient seen and examined today for follow-up on hyponatremia. Patient is doing much better. Sodium is improving appropriately. Patient indicates that she been having increased mucus and sputum production. Patient had remained afebrile. Objective Vitals Vital Signs Date Time Temp Pulse Resp B/P (MAP) Pulse Ox O2 Delivery O2 Flow Rate FiO2 12/30/17 08:00 96 Nasal Cannula 2.00 12/30/17 08:00 98.6 65 17 195/72 (113) 96 12/30/17 07:30 98 Nasal Cannula 2.00 12/30/17 06:00 60 21 152/71 (98) 98 12/30/17 06:00 60 12/30/17 05:00 60 20 133/52 (79) 97 12/30/17 04:00 60 12/30/17 04:00 98.5 60 20 147/52 (83) 98 12/30/17 03:00 60 20 140/58 (85) 98 12/30/17 02:00 58 21 115/48 (70) 97 12/30/17 02:00 58 12/30/17 01:00 60 33 185/82 (116) 98 12/30/17 00:00 54 12/30/17 00:00 97.5 54 23 174/67 (102) 98 12/29/17 23:00 52 36 161/61 (94) 97 12/29/17 22:00 54 12/29/17 22:00 54 24 173/66 (101) 98 12/29/17 21:00 56 24 162/65 (97) 98 12/29/17 20:00 52 12/29/17 20:00 52 28 162/59 (93) 100 12/29/17 19:55 99 Nasal Cannula 2.00 12/29/17 19:00 97.3 66 32 169/76 (107) 100 12/29/17 18:00 56 12/29/17 18:00 58 168/73 (104) 12/29/17 17:00 48 27 153/49 (83) 98 12/29/17 16:14 54 33 143/77 (99) 98 12/29/17 16:14 60 21 143/77 (99) 96 12/29/17 16:00 62 12/29/17 16:00 54 22 100 2/16/18 15:00 58 33 147/79 (101) 99 12/29/17 14:00 54 25 149/63 (91) 98 12/29/17 14:00 62 12/29/17 13:00 50 21 160/86 (110) 12/29/17 12:00 98.3 56 25 159/70 (99) 12/29/17 12:00 64 12/29/17 11:00 50 39 152/59 (90) 12/29/17 10:07 58 26 168/61 (96) 12/29/17 10:00 65 I/O 12/29/17 12/29/17 12/29/17 12/30/17 12/30/17 12/30/17 07:00 15:00 23:00 07:00 15:00 23:00 Intake Total 242 ml 360 ml 420 ml 208 ml Output Total 1 ml 350 ml Balance 241 ml 360 ml 420 ml -142 ml Intake Oral 120 ml 360 ml 420 ml IV Total 122 ml 208 ml Output Urine Total 1 ml 350 ml Stool Total 0 ml # Voids 2 Result Diagram: 12/30/17 0536 12/30/17 0121 Objective Remarks GENERAL: Well-developed, well-nourished, in no acute distress. alert HEENT: Head is normocephalic without any lesions or masses noted. Facial features are symmetric. Eyes: Extraocular muscles are intact. Conjunctivae were clear. NECK: Supple without any masses. Trachea midline no deviation. No JVD CARDIAC: Regular rhythm, regular rate. S1/S2 are heard. No murmurs gallops or rubs. LUNGS: Clear to auscultation bilaterally. No wheeze, rhonchi or rales. No use of accessory muscles on inspiration or expiration. ABDOMEN: Soft, nontender. Nondistended. Bowel sounds heard in all 4 quadrants. No organomegaly or masses. Negative rebound, negative guarding EXTREMITIES: No edema, pulses are equal bilaterally. No cyanosis or clubbing NEUROLOGY: Mood and affect appear appropriate. Cranial nerves II through XII grossly intact. Moving all extremities, speech is clear Urinary Catheter: No Vascular Central Line Catheter: No A/P Assessment and Plan Hyponatremia Unknown etiology at this time, awaiting laboratory studies, Renal functions show signs of overhydration, patient is on HCTZ which will be held at this time, Son indicates that he has tripled her fluid intake in the last few weeks, because he thought she was dehydrated CT scan does indicate a 3 cm rounded area of consolidative density. This radiologist indicates most likely an infiltrate. Recommend close follow-up TSH was normal, cortisol level was normal Serum osmolality 258, urine osmolality 439, urine sodium 24 Monitor sodium closely for slow improvement at 0.5 mEq per hour patient is on hypertonic saline 3% at 10 mL per hour Start fluid restriction Right lower lobe consolidative density most likely infiltrate per radiology Patient with increased sputum production Start Ceftin 250 mg twice daily Start Mucinex 600 mg twice daily Obtain sputum culture Hypokalemia Replace and continue monitor Encephalopathy, altered mental status, improved Likely secondary to metabolic disturbance from hyponatremia Monitor neurological function Bedside swallow evaluation has been performed Physical therapy evaluation If no significant improvement may need further workup performed Hypertension, coronary artery disease Resume home medication Fibromyalgia Continue home medications Chronic obstructive pulmonary disease Continue O2 supplementation maintain O2 sats greater 92% Duo nebs as needed Breo inhaler continued DVT prevention Sub-cutaneous Lovenox Discharge Planning Case management consulted for home health care. Physical therapy recommending home with home health care Yohan Ruff Dec 30, 2017 09:40
[2017-12-30] MEDS ORDERED: hydrALAZINE HCL 20 MG/ML VIAL IV PUSH PRN (09:45)
[2017-12-30] MEDS ORDERED: cloNIDine HCL 0.1 MG TAB PO PRN (09:45)
[2017-12-30] MEDS: guaiFENesin E.R. 600 MG TAB PO SCH ×2 (10:32→20:37)
--- NOTE | 2017-12-30 10:57 | HHI.FF ---
Face to Face Verification Diagnosis: (1) Physical deconditioning (2) Altered mental status (3) Hyponatremia (4) Hypokalemia Physical Therapy Order: Evaluate and Treat, Improve ambulation, Strength and gait training Home Health Nursing Order: Medical education Signs/symptoms of disease process Nursing assessment with vital signs I have seen patient Mariajose De Jesus on 12/30/17. My clinical findings support the need for the requested home health care services because: Deconditioned w/ increased weakness Limited ability to care for self I certify that my clinical findings support that this patient is homebound because: Unsteady gait/balance Unsafe to leave home unassisted Yohan Ruff Dec 30, 2017 10:57
[2017-12-30] MEDS: CEFUROXIME AXETIL 250 MG TAB PO SCH ×2 (11:55→20:37)
[2017-12-30 12:28] LABS: BICARBONATE 25.8 MEQ/L (21.0-32.0)
[2017-12-30 12:31] LABS: CREATININE 0.55 MG/DL (0.50-1.00)
[2017-12-30 18:25] LABS: BICARBONATE 25.1 MEQ/L (21.0-32.0); CALCIUM 8.2 MG/DL (8.5-10.1)
[2017-12-30 18:28] LABS: CREATININE 0.65 MG/DL (0.50-1.00)
[2017-12-30] MEDS: ENOXAPARIN SODIUM 30 MG/0.3 ML SYRINGE SQ SCH (20:37)
[2017-12-30] MEDS: traMADol HCL 50 MG TAB PO PRN (20:45)
[2017-12-31] VITALS: BP 142/61; PULSE 61; RESP 22; TEMP 99.7; O2SAT 93
[2017-12-31 00:26] LABS: CALCIUM 8.1 MG/DL (8.5-10.1)
[2017-12-31 00:27] LABS: BICARBONATE 24.9 MEQ/L (21.0-32.0)
[2017-12-31 00:30] LABS: CREATININE 0.67 MG/DL (0.50-1.00)
[2017-12-31 04:00] VITALS: BP 178/64; PULSE 60; RESP 22; TEMP 98; O2SAT 93
[2017-12-31] MEDS: LABETALOL HCL 100 MG/20 ML VIAL IV PUSH PRN (04:40)
[2017-12-31 05:00] VITALS: BP 168/69; PULSE 58; RESP 20
--- NOTE | 2017-12-31 07:43 | HHI.DCPOC ---
Discharge Care Plan Diagnosis: (1) Altered mental status (2) Physical deconditioning (3) Hyponatremia (4) Hypokalemia Goals to Promote Your Health * To prevent worsening of your condition and complications * To maintain your health at the optimal level Directions to Meet Your Goals Take your medications as prescribed Follow your dietary instruction Follow activity as directed Keep your appointments as scheduled Take your immunizations and boosters as scheduled If your symptoms worsen call your PCP, if no PCP go to Urgent Care Center or Emergency Room Smoking is Dangerous to Your Health. Avoid second hand smoke Call the 24-hour hour crisis hotline for domestic abuse at Yohan Ruff Dec 31, 2017 07:43
--- NOTE | 2017-12-31 07:44 | HHI.DS ---
Discharge Summary Admission Date Dec 28, 2017 at 15:30 Discharge Date: Dec 31, 2017 Admitting Diagnosis hyponatremia, hypokalemia, altered mental status (1) Altered mental status ICD Code: R41.82 - Altered mental status, unspecified Status: Acute (2) Hyponatremia ICD Code: E87.1 - Hypo-osmolality and hyponatremia Status: Acute (3) Hypokalemia ICD Code: E87.6 - Hypokalemia Status: Acute (4) Physical deconditioning ICD Code: R53.81 - Other malaise Procedures None Brief History - From Admission 87-year-old white female being admitted for symptomatic severe hyponatremia. Patient is a limited historian at this time due to medical condition, son provides supplemental history. Patient was in her usual state of health until about a week ago when she began developing hiccups that would not stop. This progressed on for days. Her son frequently started checking her blood pressure at home with an automatic cuff and started noting systolic blood pressures that would climb to the 200s. He increased her dose of hydrochlorothiazide from 1 pill to 1-1/2 pill each day and so mild improvement down to the 180s with systolic. He noted that she had significantly decreased p.o. intake, so is on normal days she is eats a lot but now she is barely eating. The patient's son denies the patient complaining of any worsening or new pain anywhere. He denies noticing any labored breathing. He initially had taken her to [facility] 4 days ago this was informed that her sodium level was fine at that time as well as a neg head CT. She was discharged home. Due to the persistence and the patient's symptoms, the patient 's son contacted her cut off operator scorer's office which recommended that she go to the emergency department. In the emergency room, the patient's blood pressure was noted to be in the 180 systolic. Workup showed a low sodium level at 115 and hypokalemia at 2.7. She was given oral and IV potassium as well as a small normal saline bolus of 250 cc. CBC/BMP: 12/30/17 0536 12/31/17 0000 Significant Findings Laboratory Tests Test 12/28/17 14:45 12/28/17 17:30 12/29/17 04:20 12/29/17 11:24 Hemoglobin 11.0 GM/DL (11.6-15.3) Hematocrit 34.0 % (35.0-46.0) Mean Corpuscular Hemoglobin 26.9 PG (27.0-34.0) Neutrophils (%) (Auto) 85.1 % (16.0-70.0) Lymphocytes (%) (Auto) 6.5 % (9.0-44.0) Monocytes (%) (Auto) 8.1 % (0.0-8.0) Lymphocytes # (Auto) 0.5 TH/MM3 (1.0-4.8) Random Glucose 115 MG/DL (74-106) 121 MG/DL (74-106) Calcium Level 8.3 MG/DL (8.5-10.1) 8.1 MG/DL (8.5-10.1) 8.0 MG/DL (8.5-10.1) Total Bilirubin 1.4 MG/DL (0.2-1.0) Direct Bilirubin 0.4 MG/DL (0.0-0.2) Sodium Level 115 MEQ/L (136-145) 120 MEQ/L (136-145) 122 MEQ/L (136-145) Potassium Level 2.7 MEQ/L (3.5-5.1) 2.8 MEQ/L (3.5-5.1) 3.4 MEQ/L (3.5-5.1) Chloride Level 78 MEQ/L (98-107) 84 MEQ/L (98-107) 87 MEQ/L (98-107) Indirect Bilirubin 1.0 MG/DL (0.0-0.8) Creatinine 0.43 MG/DL (0.50-1.00) 0.48 MG/DL (0.50-1.00) Serum Osmolality 258 MOSM/KG (275-295) Test 12/29/17 13:57 12/29/17 17:45 12/29/17 23:00 12/30/17 01:21 Vitamin B12 Level 1687 PG/ML (193-986) Folate GREATER THAN 20.0 NG/ML Random Glucose 111 MG/DL (74-106) Calcium Level 8.1 MG/DL (8.5-10.1) 7.7 MG/DL (8.5-10.1) Sodium Level 123 MEQ/L (136-145) 125 MEQ/L (136-145) Chloride Level 90 MEQ/L (98-107) 94 MEQ/L (98-107) Urine Protein 100 mg/dL (NEG-TRACE) Urine Leukocyte Esterase SMALL (NEG) Urine WBC 15-19 /hpf (0-5) Test 12/30/17 05:36 12/30/17 08:00 12/30/17 12:00 12/30/17 18:00 Red Blood Count 3.68 MIL/MM3 (4.00-5.30) Hemoglobin 10.1 GM/DL (11.6-15.3) Hematocrit 31.2 % (35.0-46.0) Neutrophils (%) (Auto) 75.7 % (16.0-70.0) Monocytes (%) (Auto) 11.8 % (0.0-8.0) Lymphocytes # (Auto) 0.5 TH/MM3 (1.0-4.8) Random Glucose 107 MG/DL (74-106) Calcium Level 8.0 MG/DL (8.5-10.1) 8.2 MG/DL (8.5-10.1) Sodium Level 131 MEQ/L (136-145) 130 MEQ/L (136-145) Estimat Glomerular Filtration Rate 86 ML/MIN (>89) Test 12/31/17 00:00 Blood Urea Nitrogen 19 MG/DL (7-18) Random Glucose 111 MG/DL (74-106) Calcium Level 8.1 MG/DL (8.5-10.1) Sodium Level 131 MEQ/L (136-145) Estimat Glomerular Filtration Rate 83 ML/MIN (>89) Imaging Last Impressions Chest CT 12/28/17 0000 Signed Impressions: Service Date/Time: December 14:59 - CONCLUSION: 3 cm rounded area of consolidative density in the superior segment of the right lower lobe looks most like an infiltrate. Appropriate management and followup imaging to document clearance would be suggested with repeat CT in 4-6 weeks Kam Rivas MD PE at Discharge GENERAL: Well-developed, well-nourished, in no acute distress. alert HEENT: Head is normocephalic without any lesions or masses noted. Facial features are symmetric. Eyes: Extraocular muscles are intact. Conjunctivae were clear. NECK: Supple without any masses. Trachea midline no deviation. No JVD CARDIAC: Regular rhythm, regular rate. S1/S2 are heard. No murmurs gallops or rubs. LUNGS: Clear to auscultation bilaterally. No wheeze, rhonchi or rales. No use of accessory muscles on inspiration or expiration. ABDOMEN: Soft, nontender. Nondistended. Bowel sounds heard in all 4 quadrants. No organomegaly or masses. Negative rebound, negative guarding EXTREMITIES: No edema, pulses are equal bilaterally. No cyanosis or clubbing NEUROLOGY: Mood and affect appear appropriate. Cranial nerves II through XII grossly intact. Moving all extremities, speech is clear Hospital Course This is a 87-year-old female who originally presented to the hospital because of altered mental status. Workup done emergency department found to have significant electrolyte abnormalities with severe hyponatremia 115. Patient was given 3% saline emergency department and recommended admission. Patient had workup performed which did indicate a low serum osmolality, highly elevated urine osmolality with a elevated urine sodium. Patient's condition is secondary to multiple factors, one being that she is on HCTZ diuretic which was stopped as well as son states that he thought that his mother was dehydrated so he was making her drink at least 3 times more water than she was. Because of studies do indicate a dilutional factor likely secondary to polydipsia. Patient was monitored closely with sodium levels. Her sodium will has improved significantly with fluid restriction and status post 3% saline. Sodium is now 131. Patient mentation is significantly better. Patient has clinically improved. Her blood pressure has had some mild elevation with discontinuation of HCTZ. Blood pressure medication has been adjusted and addition of Norvasc and Apresoline. Blood pressure is much better. Physical therapy did evaluate the patient recommended patient should have home with home health care. Case management was consulted for home health care with nursing as well as physical therapy. Will plan discharge accordingly once rangers made by case management. Pt Condition on Discharge: Stable Discharge Disposition: Disch w/ Home Health Serv Discharge Time: > 30 minutes Discharge Instructions DIET: Follow Instructions for: As Tolerated, No Restrictions Activities you can perform: Regular-No Restrictions Follow up Referrals: PCP Follow-up - 1 Week New Medications: Amlodipine (Norvasc) 10 Mg Tab 10 MG PO DAILY for Blood Pressure Management for 30 Days, #30 TAB Hydralazine HCl (Hydralazine HCl) 10 Mg Tablet 10 MG PO Q8HR for Blood Pressure Management for 30 Days, TAB Continued Medications: Albuterol 8.5 GM Inh (Proair Hfa 8.5 GM Inh) 90 Mcg/Act Aer 2 PUFF INH Q4-6H PRN for SHORTNESS OF BREATH, #1 INHALER 0 Refills 108 mcg/actuation Calcium Carbonate-Cholecalciferol (Calcium 600 with Vitamin D) 600-400 mg-Unit Tab 1 TAB PO DAILY for Calcium Supplement, TAB 0 Refills Calcium Polycarbophil (Fiber) 625 Mg Tab 1250 MG PO PRN for CONSTIPATION, TAB 0 Refills Clopidogrel (Plavix) 75 Mg Tab 75 MG PO DAILY for Blood Clot Prevention, #30 TAB 0 Refills Coenzyme Q10 (Ubidecarenone) (Coq-10) 400 Mg Cap Cyanocobalamin (B-12) 1,000 Mcg Subl 1000 MCG SL DAILY for Nutritional Supplement, TAB.SL 0 Refills Estradiol Vaginal (Estrace Vaginal) 0.01% Cream 1 APPL VAGINAL HS for Estrogen Supplements, #1 TUBE 0 Refills Fluticasone Nasal [place] (Fluticasone Nasal [place]) 50 Mcg/Act Naspr 50 MCG EACH NARE BID for Allergy Management, #1 BOTTLE 0 Refills 50 mcg/spray Fluticasone-Vilanterol Inh (Breo Ellipta Inh) 100-25 Mcg/Act Inh 1 PUFF INH DAILY, #1 INHALER 0 Refills Use daily at the same time. Ina Root (Ina Root) 550 Mg Capsule Glucosamine (Glucosamine) 750 Mg Cap 750 MG PO DAILY for Herbal Supplements, CAP 0 Refills Isosorbide Mononitrate ER (Isosorbide Mononitrate ER) 30 Mg [place] 30 MG PO BID for Prevent Chest Pain, #30 TAB 0 Refills Loratadine (Claritin) 10 Mg Cap 10 MG PO DAILY for Allergy Management, CAP 0 Refills Menthol-Camphor (Liniments) (Tom Natural Pain Relie 3-3 %) 3 %-3 % Gel Metoprolol Tartrate (Metoprolol Tartrate) 25 Mg Tab 0.5 TAB PO BID, #60 TAB 0 Refills Multiple Vitamins W/ Minerals (Preservision Areds) 1 Tab 1 TAB PO DAILY for Nutritional Supplement, TAB 0 Refills Nitroglycerin SL (Nitroglycerin SL) 0.4 Mg Subl 0.4 MG SL DIRECTED PRN for CHEST PAIN, #100 TAB.SL 0 Refills ONE TABLET UNDER THE TONGUE NEEDED FOR CHEST PAIN, MAY REPEAT EVERY FIVE MINUTES FOR A TOTAL OF 3 DOSES OR CALL 911 IF NO RELIEF Nutritional Supplements ([place] Oil) 1,000 Mg-200 Mg Cap Pantoprazole (Pantoprazole) 40 Mg Tab 40 MG PO BID for Reflux, #30 TAB 0 Refills Pembrolizumab Inj (Keytruda Inj) 100 Mg/4 Ml (25 Mg/Ml) Inj Pravastatin (Pravastatin) 40 Mg Tab 40 MG PO DAILY for Cholesterol Management, #30 TAB 0 Refills Pregabalin (Lyrica) 75 Mg Cap 75 MG PO DAILY, #30 CAP 0 Refills Pregabalin (Lyrica) 100 Mg Cap 100 MG PO DAILY, #30 CAP 0 Refills Probiotic Product (Acidophilus/Bifidus) 1 Billion Cell Waf Temazepam (Temazepam) 15 Mg Cap 15 MG PO HS PRN for INSOMNIA, #30 CAP 0 Refills Tramadol (Tramadol) 50 Mg Tab 50 MG PO BID PRN for PAIN, TAB 0 Refills Vitamins C & E (Cranberry Urinary Comfort) 1 Cap 1 CAP PO DAILY for Urinary Symptom Managemen, CAP 0 Refills Discontinued Medications: Hydrochlorothiazide (Hydrochlorothiazide) 25 Mg Tab 25 MG PO DAILY, #30 TAB 0 Refills Yohan Ruff Dec 31, 2017 07:44
[2017-12-31 07:58] VITALS: O2SAT 95
[2017-12-31 08:00] VITALS: BP 182/78; PULSE 72; RESP 16; TEMP 98.6; O2SAT 96
[2017-12-31] MEDS ORDERED: hydrALAZINE HCL 10 MG TAB PO SCH (08:00)
[2017-12-31] MEDS: PREGABALIN 100 MG CAP PO SCH (08:20)
[2017-12-31] MEDS: guaiFENesin E.R. 600 MG TAB PO SCH (08:20)
[2017-12-31] MEDS: CEFUROXIME AXETIL 250 MG TAB PO SCH (08:20)
[2017-12-31] MEDS: LORATADINE 10 MG TAB PO SCH (08:21)
[2017-12-31] MEDS: PILL SPLITTER OTHER PRN (08:21)
[2017-12-31] MEDS: FLUTICASONE 100 MCG/VILANTEROL 25 MCG INHALER INH SCH (08:21)
[2017-12-31] MEDS: ISOSORBIDE MONONITRATE 30 MG CR TAB (IMDUR) PO SCH (08:21)
[2017-12-31] MEDS: PRAVASTATIN SOD 40 MG TAB PO SCH (08:21)
[2017-12-31] MEDS: PANTOPRAZOLE SOD 40 MG DELAYED RELEASE TAB PO SCH (08:21)
[2017-12-31] MEDS: CLOPIDOGREL 75 MG TAB PO SCH (08:21)
[2017-12-31] MEDS: SODIUM CHLORIDE 0.9% FLUSH 10 ML FLUSH IV FLUSH SCH (08:21)
[2017-12-31] MEDS: METOPROLOL TARTRATE 25 MG TAB PO SCH (08:21)
[2017-12-31] MEDS ORDERED: AMLO10 PO (10:01)
[2017-12-31] MEDS ORDERED: HYDR-3798 PO (10:01)
[2017-12-31 10:23] VITALS: BP 147/84; PULSE 58; RESP 17
== END 2017-12-31 11:42 | disposition home health service (06) | DRG 640 ==
LOC: PHED 13:46 → PHEDA 15:30 → PHICU 16:47
PROVIDERS: ADMIT Hospitalist; ATTEND Hospitalist
DX: E87.1 Hypo-osmolality and hyponatremia (principal); G93.41 Metabolic encephalopathy; J44.9 Chronic obstructive pulmonary disease, unspecified; C34.90 Malignant neoplasm of unspecified part of unspecified bronchus or lung; R13.10 Dysphagia, unspecified; E87.6 Hypokalemia; I10 Essential (primary) hypertension; I25.10 Atherosclerotic heart disease of native coronary artery without angina pectoris; G89.29 Other chronic pain; I25.2 Old myocardial infarction; E87.70 Fluid overload, unspecified; R63.1 Polydipsia; M19.90 Unspecified osteoarthritis, unspecified site; M79.7 Fibromyalgia; M85.80 Other specified disorders of bone density and structure, unspecified site; Z87.891 Personal history of nicotine dependence; Z88.5 Allergy status to narcotic agent
CPT/HCPCS: 71250; 80048; 80076; 81001; 82533; 82607; 82746; 83735; 83930; 83935; 84300; 84443; 84484; 84588; 85025; 85610; 85652; 86592; 87086; 87641; 93005; 94664; 96360; J0360; J1642; J1650; J3480; J7050; J7613